=== PATIENT | female | born 1960 | race Caucasian/White ===

== ENCOUNTER 2018-11-12 17:29 | Emergency (ER) | payer OTHER, SELFPAY ==
[2018-11-12 17:34] VITALS: BP 156/82; PULSE 107; RESP 20; TEMP 36.8; O2SAT 98
--- NOTE | 2018-11-12 17:46 | W.ED.GENAD ---
Discharge Plan Disposition Patient Disposition: HOME Condition: Fair Discharge Details Chief Complaint: Laceration Clinical Impression: Laceration of arm Primary Care Provider: Kirstie,Local ED Provider: Caron Ashby Home Meds and New Rx's Prescriptions: New cephalexin [Keflex] 500 mg capsule 500 mg PO QID Qty: 18 RF: 0 Continued amlodipine [Norvasc] 2.5 mg Tablet PO DAILY RF: 0 Discharge Instructions Instructions: Cephalexin (By mouth), Laceration (ED) Additional Instructions: Keep wound clean, dry, covered. Please keep current dressing on for the next 24 hours. After that time, you may wash with running water and soap but please do not soak or submerge as this will increase her risk of infection. Please keep covered particularly when doing activities that may increase her risk of contamination. If you develop signs of infection such as redness, warmth, drainage, increased pain, fever/chills or other new/worsening symptoms please seek care urgently once again. You will need sutures removed in 10 days. Your tetanus was updated today. Please take Keflex as prescribed to help prevent infection. Discharge Data Discharge Date/Time-TO BE ENTERED AT DEPARTURE: 11/12/18 19:45 Medical Decision Making Patient is a 57-year-old [id number] female presenting today with chief complaint of laceration to the right elbow. She reports that she was mountain biking at [place] when she fell and landed on the right elbow. She is coming by her who is acting as a freezer machine operator, she is a comfortable with him being the freezer machine operator for this visit. Patient does have history of breast cancer, recently finished radiation therapy. Exam is otherwise benign. She was helmeted at the time of the incident. Did not strike her head, no loss of conscious, no headache. Pain her neck, back, chest, abdomen, pelvis on exam. Will update tetanus today. She is a 6 cm irregular shaped laceration with a slow bleed on the posterior aspect of the right. Plan closed with sutures. We discussed risk/benefits as well as expected procedural steps. They voiced understanding and wishes to proceed. Please see procedure note. This is completed using standard sterile technique. Wound is copiously irrigated, explored to base in a bloodless field. No foreign body or debris was noted. Patient tolerated the procedure well. Dressing was applied by myself. Patient I discussed wound care in depth. We discussed timeline for suture removal, she will follow-up with her primary care to have these removed. We discussed activities that she should avoid very high risk for infection. We discussed the signs symptoms of infection when to seek care urgently once again. All of her questions and concerns were addressed and she is in agreement this plan. HPI General Mode of arrival: ambulatory. Date/Time Provider Initiated Documentation: 11/12/18 17:29. Limitations to Documentation: no limitations. Information obtained by: patient, family () and RN notes reviewed. History of Present Illness 57 year old F presents to the emergency department with the chief complaint of right elbow laceration, described as mild, with intensity rated at 3. Quality is described as aching, and is localized to the right and upper extremity. Patient reports no radiation. Patient started experiencing this minute(s) and it has been constant. No relieving factors improve symptom(s), No exacerbating factors reported . Patient notes no other symptoms.. Patient did receive the following treatments prior to arrival, none Related Data Home Medications Medication Instructions Recorded Confirmed amlodipine [Norvasc] mg PO DAILY 11/12/18 cephalexin [Keflex] 500 mg PO QID #18 cap 11/12/18 Previous Rx's Medication Instructions Recorded cephalexin [Keflex] 500 mg PO QID #18 cap 11/12/18 Allergies Allergy/AdvReac Type Severity Reaction Status Date / Time No Known Allergies Allergy Unverified 11/12/18 17:39 General Stated Complaint: Laceration HUMA: 3 Review of Systems Constitutional Reports as per HPI, Denies chills, Denies fever(s) and Denies headache(s) ENT Denies headache(s) Cardiovascular Denies acrocyanosis, Denies dyspnea and Denies dyspnea on exertion Respiratory Denies dyspnea and Denies dyspnea on exertion Gastrointestinal Denies abdominal pain, Denies nausea and Denies vomiting Musculoskeletal Reports as per HPI Integumentary/Breasts Reports as per HPI Neurologic Reports as per HPI, Denies headache(s), Denies sensory deficit and Denies paresthesias [facility] Medical History Asthma (Chronic) Breast cancer (Chronic) Hypertension (Chronic) Lymphoma (Acute) Social History Smoking/Tobacco Use Status: Never Substance use type: does not use Additional Social history: unable to assess Exam Const General: cooperative, healthy appearing, comfortable, no acute distress and well developed Nutritional Appearance: average body habitus and well nourished Orientation: alert and awake Eyes General: appearance normal, both eyes and all related structures EOM: EOM intact bilaterally Neck Neck: normal visual inspection, full ROM and no meningeal signs Chest Chest: normal inspection of the chest and normal palpation of entire chest wall Resp Effort & Inspection: normal respiratory effort, able to speak in complete sentences and no respiratory distress Cardio Rate: regular rate Rhythm: regular rhythm Back/Spine/Pelvis Back: no CVA tenderness Cervical Spine: normal cervical lordosis and cervical ROM normal Thoracic/Lumbar Spine: thoracic and lumbar spine normal to inspection Pelvis: no pain with anterior-posterior compression and no pain with lateral compression Skin Trauma: laceration (6cm irregular laceration into subQ with active bleeding posterior right elb) Neuro General: alert and awake Cognition: normal cognition Speech: speech normal Gait: normal gait Sensory Exam: no sensory deficits noted Extrem Right upper extremity: full ROM, normal capillary refill, no joint enlargement, shoulder/upper arm Details: normal to inspection, elbow/forearm Details: normal ROM and laceration; no tenderness, no unusual warmth, no ecchymosis, no penetrating wound and no deformity, wrist Details: normal to inspection and normal ROM; no tenderness and no swelling and hand Details: normal to inspection, normal capillary refill, neuromotor exam normal and neurosensory exam normal; abnormal to inspection (laceration as above) Psych Appearance: grossly normal and well kempt Mental Status: mental status grossly normal Speech and Movement: speech and movement normal Course Vital Signs Temperature 36.8 C 11/12/18 17:34 Pulse 107 H 11/12/18 17:34 Respiratory Rate 20 11/12/18 17:34 Blood Pressure 156/82 H 11/12/18 17:34 Pulse Oximetry 98 11/12/18 17:34 Temperature 36.8 C 11/12/18 17:34 Temperature Source Temporal Artery Scan 11/12/18 17:34 Pulse 107 H 11/12/18 17:34 Respiratory Rate 20 11/12/18 17:34 Respiratory Effort Non-Labored 11/12/18 17:34 Blood Pressure 156/82 H 11/12/18 17:34 Pulse Oximetry 98 11/12/18 17:34 Oxygen Delivery Method Room Air 11/12/18 17:34 Oxygen Flow Rate 0 11/12/18 17:34 Pain Level 3 11/12/18 17:34 Procedures Laceration Laceration 1: Site: upper extremity Side (If applicable): right Size (cm): 7 Description: irregular and contaminated Depth: involves muscle layer Local Anesthetic: Lidocaine 1% and with Epi Amount of anesthesia used (mL): 10 Pre-repair: wound explored, irrigated extensively and extensive debridement Skin layer closed with: nylon Size (cm): 5-0 Number of sutures: 7 Technique: simple, interrupted Subcutaneous layer closed with: vicryl Size: 4-0 Number of sutures: 3 Technique: simple, interrupted
--- NOTE | 2018-11-12 18:55 | NUR.NOTE ---
terrance wrap-4 inch, applied over guaze/cling bandage. Nursing Note:
[2018-11-12] MEDS: Cephalexin 500 MG CAP PO ×2 (19:41)
[2018-11-12 19:47] VITALS: BP 156/82; PULSE 107; RESP 20; O2SAT 98
== END 2018-11-12 19:45 | disposition home or self-care (01) ==
PROVIDERS: Emergency Provider Physician Assistant
DX: S51.011A Laceration without foreign body of right elbow, initial encounter (principal); V17.0XXA Pedal cycle driver injured in collision with fixed or stationary object in nontraffic accident, initial encounter
CPT/HCPCS: 12002